=== PATIENT | female | born 1980 | race Caucasian/White ===

== ENCOUNTER → 2020-09-25 | Outpatient (CLI) | payer BC | END | disposition home or self-care (01) | LOC: CFH 08:52 | PROVIDERS: ATTEND Physician Assistant Surgical | DX: S92.062A Displaced intraarticular fracture of left calcaneus, initial encounter for closed fracture (principal); X58.XXXA Exposure to other specified factors, initial encounter; Y93.89 Activity, other specified; Y92.89 Other specified places as the place of occurrence of the external cause; Y99.8 Other external cause status ==